=== PATIENT | male | born 1960 | race Caucasian/White ===

== ENCOUNTER 2021-01-26 10:00 | Outpatient (CLI) | payer BC, SELFPAY ==
[2021-01-29] MEDS ORDERED: MIDAZOLAM HCL 5 MG/5 ML VIAL ONE (07:34)
[2021-01-29] MEDS ORDERED: DIPHENHYDRAMINE INJ 50 MG/ML VIAL ONE (07:35)
== END 2021-01-26 11:00 | disposition home or self-care (01) ==
LOC: SLB 10:00 → EDSTATUS 01-29 09:30
PROVIDERS: ATTEND Internal Medicine
DX: Z01.812 Encounter for preprocedural laboratory examination (principal); G89.4 Chronic pain syndrome; M96.0 Pseudarthrosis after fusion or arthrodesis; M96.1 Postlaminectomy syndrome, not elsewhere classified; Z20.822 Contact with and (suspected) exposure to COVID-19
CPT/HCPCS: J1200; J2250; U0003

== ENCOUNTER 2021-03-24 07:09 | Day surgery (SDC) | payer BC, MEDICAID, SELFPAY ==
[~2021-03-24] VITALS: Ht 175.3 cm; Wt 86.2 kg
[2021-03-24] MEDS ORDERED: NS 1000 ML IV.SOLN IV ONE (07:10)
[2021-03-24] MEDS ORDERED: BUPIVACAINE /EPINEPHRINE/PF 0.25% 30 ML VIAL INJ ONE (07:10)
[2021-03-24] MEDS ORDERED: LIDOCAINE 2%, 20 ML MDV INJ ONE (07:10)
[2021-03-24] MEDS ORDERED: methylPREDNISolone ACETATE 40 MG/ML IM ONE (07:10)
[2021-03-24] MEDS ORDERED: ISOVUE-300 (IOPAMIDOL) 100 ML INFUS..BTL IV ONE (07:10)
[2021-03-24] MEDS ORDERED: DIPHENHYDRAMINE INJ 50 MG/ML VIAL ONE (08:57)
[2021-03-24 17:18] VITALS: BP_SYST 137
[2021-03-27] MEDS: MIDAZOLAM HCL 5 MG/5 ML VIAL ONE ×2 (09:52→09:56)
== END 2021-03-24 11:50 | disposition home or self-care (01) ==
LOC: SDS 07:09 → SMU 07:10 → SDS 11:50
PROVIDERS: ATTEND Internal Medicine
DX: M51.16 Intervertebral disc disorders with radiculopathy, lumbar region (principal); M96.1 Postlaminectomy syndrome, not elsewhere classified; M96.0 Pseudarthrosis after fusion or arthrodesis; G89.4 Chronic pain syndrome; J45.909 Unspecified asthma, uncomplicated; I10 Essential (primary) hypertension; Z20.822 Contact with and (suspected) exposure to COVID-19; Z98.1 Arthrodesis status
CPT/HCPCS: 36415 ×2; 62323; 87426 ×2; J1030; J1200; J2001; J2250; J3490; J7030; Q9967; U0003; 76000